=== PATIENT | female | born 2000 | race Caucasian/White ===

== ENCOUNTER 2019-04-04 11:31 | Emergency (ER) | payer BC, OTHER ==
[~2019-04-04] VITALS: Ht 160 cm; Wt 54.0 kg
[2019-04-04 11:35] VITALS: Ht 160 cm; Wt 54.0 kg
[2019-04-04] MEDS ORDERED: KETOROLAC 15 MG INJ IM STA (12:29)
[2019-04-04] MEDS ORDERED: LORAZEPAM 1 MG TAB PO ONE (12:30)
[2019-04-04] MEDS ORDERED: ONDANSETRON (ODT) 4 MG TAB ODT STA (12:30)
[2019-04-04 13:00] VITALS: BP 123/69; PULSE 89; RESP 20
[2019-04-04] MEDS ORDERED: CEPH-443 PO (13:37)
[2019-04-04] MEDS ORDERED: HYDR-843 PO (13:37)
[2019-04-04] MEDS ORDERED: NAPR-985 PO (13:37)
--- NOTE | 2019-04-04 21:40 | ERD ---
ER Documentation Chief Complaint Chief Complaint C/O H/A WITH FEVER, BOTH EAR PAIN FOR 4 DAYS HPI 18-year-old female presents emergency department complaining of intermittent headache for the past 4 days. Patient does have history of anxiety in the past but does not take medication for it. Headache is localized to the occipital r egion and radiates down her right neck. Symptoms onset suddenly. Ibuprofen alleviate symptoms. She also reports feeling significant symptoms of anxiety due to school and family and work stress. She denies any photophobia, suicidal ideation, homicidal ideation, chest pain, shortness of breath, or other symptoms at this time. ROS All systems reviewed and are negative except as per history of present illness. Medications Home Meds Active Scripts Hydroxyzine Hcl* (Hydroxyzine Hcl*) 25 Mg Tablet, 25 MG PO Q8H PRN for ANXIETY, #30 TAB Prov:WILLIAM NEVES PA-C 04/04/19 Naproxen* (Naprosyn*) 500 Mg Tablet, 500 MG PO BID PRN for PAIN AND/OR INFLAMMATION, #30 TAB Prov:WILLIAM NEVES PA-C 04/04/19 Cephalexin* (Keflex*) 500 Mg Capsule, 500 MG PO QID for 5 Days, CAP Prov:WILLIAM NEVES PA-C 04/04/19 Allergies Allergies: Coded Allergies: No Known Allergy (Unverified , 04/04/19) PMhx/Soc Medical and Surgical Hx: pt denies Medical Hx, pt denies Surgical Hx Hx Alcohol Use: No Hx Substance Use: No Hx Tobacco Use: No Smoking Status: Never smoker FmHx Family History: No diabetes Physical Exam Vitals Vital Signs Date Temp Pulse Resp B/P (MAP) Pulse Ox O2 O2 Flow FiO2 Time Delivery Rate 04/04/19 98.8 89 20 123/69 99 Room Air 13:00 (87) 04/04/19 98.8 105 20 134/80 99 11:35 (98) Physical Exam Const: No acute distress Head: Atraumatic Eyes: Normal Conjunctiva ENT: Normal External Ears, Nose and Mouth. Mild erythema to the tympanic membranes bilaterally. Posterior pharynx is clear. Uvula is midline. Neck: Full range of motion. No meningismus. Resp: Clear to auscultation bilaterally Cardio: Regular rate and rhythm, no murmurs Abd: Soft, non tender, non distended. Normal bowel sounds Skin: No petechiae or rashes Back: No midline or flank tenderness Ext: No cyanosis, or edema Neur: Awake and alert. No neurological deficits. Psych: Anxious. Denies homicidal or suicidal ideation. Result Diagram: 04/04/19 1255 04/04/19 1255 Results 24 hrs Laboratory Tests Test 04/04/19 12:43 04/04/19 12:44 04/04/19 12:55 POC Beta HCG, Qualitative NEGATIVE Urine Color JULEE Urine Clarity CLOUDY Urine pH 5.0 Urine Specific [place] 1.029 Urine Ketones 2+ mg/dL Urine Nitrite NEGATIVE mg/dL Urine Bilirubin NEGATIVE mg/dL Urine Urobilinogen NEGATIVE mg/dL Urine Leukocyte Esterase TRACE Tj/ul Urine Microscopic RBC 47 /HPF Urine Microscopic WBC 17 /HPF Urine Squamous Epithelial Cells FEW /HPF Urine Bacteria FEW /HPF Urine Mucus MANY /HPF Urine Hemoglobin 2+ mg/dL Urine Glucose NEGATIVE mg/dL Urine Total Protein 2+ mg/dl White Blood Count 10.6 10^3/ul Red Blood Count 5.10 10^6/ul Hemoglobin 15.3 g/dl Hematocrit 46.6 % Mean Corpuscular Volume 91.4 fl Mean Corpuscular Hemoglobin 30.0 pg Mean Corpuscular 32.8 g/dl Hemoglobin Concent Red Cell Distribution Width 12.3 % Platelet Count 248 10^3/UL Mean Platelet Volume 10.1 fl Immature Granulocytes % 0.600 % Neutrophils % 81.0 % Lymphocytes % 10.2 % Monocytes % 7.8 % Eosinophils % 0.0 % Basophils % 0.4 % Nucleated Red Blood Cells % 0.0 /100WBC Immature Granulocytes # 0.060 10^3/ul Neutrophils # 8.6 10^3/ul Lymphocytes # 1.1 10^3/ul Monocytes # 0.8 10^3/ul Eosinophils # 0.0 10^3/ul Basophils # 0.0 10^3/ul Nucleated Red Blood Cells # 0.0 10^3/ul Sodium Level 143 mmol/L Potassium Level 3.6 mmol/L Chloride Level 104 mmol/L Carbon Dioxide Level 20 mmol/L Anion Gap 19 Blood Urea Nitrogen 7 mg/dl Creatinine 0.63 mg/dl Est Glomerular Filtrat > 60 mL/min Rate mL/min Glucose Level 89 mg/dl Calcium Level 9.7 mg/dl Current Medications Medications Dose Sig/Katharine Start Time Status Last (Trade) Ordered Route PRN Stop Time Admin Dose Reason Admin Lorazepam 1 mg ONCE ONCE 04/04/19 DC 04/04/19 (Ativan) PO 12:30 12:48 04/04/19 12:31 Ketorolac 15 mg ONCE STAT 04/04/19 DC 04/04/19 Tromethamine IM 12:29 12:49 (Toradol) 04/04/19 12:30 Ondansetron 4 mg ONCE STAT 04/04/19 DC 04/04/19 HCl (Zofran ODT 12:30 12:48 Odt) 04/04/19 12:31 Procedures/MDM 18-year-old female presents the emergency department with complaints of headache and anxiety. Patient was also found to have urinary tract infection on urinalysis. Urine was negative. Patient was administered Ativan and ibuprofen in the department with significant improvement of her symptoms. On reevaluation she was improved and was no longer anxious. Her pulse improved as well as she was initially tachycardic. No evidence to suggest acute coronary syndrome, pneumothorax, pulmonary embolism, serious bacterial infection, sepsis, or other emergencies. Patient will be discharged home with prescriptions to further treat her symptoms. She was advised to return to the department immed iately for any new or worsening or concerning symptoms. She understands and agrees with the plan. Departure Diagnosis: Primary Impression: Headache Additional Impression: UTI (urinary tract infection) Condition: Fair Patient Instructions: Understanding Urinary Tract Infections (UTIs), Self-Care for Headaches Referrals: [facility] YOU HAVE RECEIVED A MEDICAL SCREENING EXAM AND THE RESULTS INDICATE THAT YOU DO NOT HAVE A CONDITION THAT REQUIRES URGENT TREATMENT IN THE EMERGENCY DEPARTMENT. FURTHER EVALUATION AND TREATMENT OF YOUR CONDITION CAN WAIT UNTIL YOU ARE SEEN IN YOUR DOCTORS OFFICE WITHIN THE NEXT 1-2 DAYS. IT IS YOUR RESPONSIBILITY TO MAKE AN APPOINTMENT FOR FOLOW-UP CARE. IF YOU HAVE A PRIMARY DOCTOR --you should call your primary doctor and schedule an appointment IF YOU DO NOT HAVE A PRIMARY DOCTOR YOU CAN CALL OUR PHYSICIAN REFERRAL HOTLINE AT IF YOU CAN NOT AFFORD TO SEE A PHYSICIAN YOU CAN CHOSE FROM THE FOLLOWING [facility] [id number] [facility] [address] [facility] [facility] [address] [facility] [address] [facility] [address]. [facility] [address] Additional Instructions: Call your primary care doctor TOMORROW for an appointment during the next 1-2 days.See the doctor sooner or return here if your condition worsens before your appointment time. WILLIAM NEVES PA-C Apr 04, 2019 21:40
== END 2019-04-04 13:43 | disposition home or self-care (01) ==
LOC: FTE 11:31
DX: R51 Headache (principal); N39.0 Urinary tract infection, site not specified
CPT/HCPCS: 80048; 81001; 81025; 85025; 96372; 99284; J1885